=== PATIENT | female | born 1985 | race Hispanic/Latino ===

== ENCOUNTER 2021-07-23 01:48 | Day surgery (SDC) | payer OTHER ==
[2021-07-23 02:06] VITALS: BMI 36.5
[2021-07-23] MEDS ORDERED: hydrALAZINE 20 MG/ML VIAL SLOW IVP PRN (02:15)
== END 2021-07-23 02:31 | disposition home or self-care (01) ==
LOC: CSHLD/OP 01:48
PROVIDERS: ATTEND Obstetrics & Gynecology
DX: O36.8130 Decreased fetal movements, third trimester, not applicable or unspecified (principal); O24.419 Gestational diabetes mellitus in pregnancy, unspecified control; O99.343 Other mental disorders complicating pregnancy, third trimester; O99.283 Endocrine, nutritional and metabolic diseases complicating pregnancy, third trimester; O99.713 Diseases of the skin and subcutaneous tissue complicating pregnancy, third trimester; O09.523 Supervision of elderly multigravida, third trimester; F32.9 Major depressive disorder, single episode, unspecified; F41.9 Anxiety disorder, unspecified; E03.9 Hypothyroidism, unspecified; L40.50 Arthropathic psoriasis, unspecified; Z3A.32 32 weeks gestation of pregnancy; Z79.82 Long term (current) use of aspirin; Z79.84 Long term (current) use of oral hypoglycemic drugs; Z79.899 Other long term (current) drug therapy; Z86.16 Personal history of COVID-19; Z90.49 Acquired absence of other specified parts of digestive tract; Z88.5 Allergy status to narcotic agent; Z91.09 Other allergy status, other than to drugs and biological substances; Z87.891 Personal history of nicotine dependence
CPT/HCPCS: 99282

== ENCOUNTER 2022-07-23 08:04 | Outpatient (CLI) | payer BC ==
[2022-07-23 10:42] LABS: BHCG - Serum Negative (NEGATIVE); Pregs Control Background? CLEAR/WHITE (CLR/WHITE); Pregs Control Bar Appear? YES (CONTROL BAR)
== END 2022-07-23 08:05 | disposition home or self-care (01) ==
LOC: CSHLAB 08:04
PROVIDERS: ATTEND Otolaryngology Otolaryngic Allergy
DX: Z01.812 Encounter for preprocedural laboratory examination (principal); Z20.822 Contact with and (suspected) exposure to COVID-19
CPT/HCPCS: 84703; 85014; 87811

== ENCOUNTER 2022-07-28 05:50 | Observation (INO) | payer BC ==
[2022-07-28] MEDS ORDERED: Fentanyl 250 MCG/5 ML VIAL ONE (06:41)
[2022-07-28] MEDS ORDERED: PROPOFOL 20 ML ONE ×2 (06:41→07:29)
[2022-07-28] MEDS ORDERED: Ondansetron PF 4 MG/2 ML Vial ONE ×2 (06:42→08:55)
[2022-07-28] MEDS ORDERED: Rocuronium Bromide 10 MG/ML (10ML VIAL) ONE (06:42)
[2022-07-28] MEDS ORDERED: Lidocaine 1% PF 5 ML VIAL ONE (06:42)
[2022-07-28] MEDS ORDERED: Dexamethasone 20 MG/5 ML VIAL ONE (06:42)
[2022-07-28] MEDS ORDERED: Midazolam HCl 2 mg/2 ml Vial ONE (06:42)
[2022-07-28] MEDS ORDERED: Acetaminophen 325 MG TAB PO PRN (06:48)
[2022-07-28] MEDS ORDERED: Ondansetron PF 4 MG/2 ML Vial IVP PRN (06:48)
[2022-07-28] MEDS ORDERED: Ondansetron ODT 4 MG TAB PO PRN (06:48)
[2022-07-28] MEDS ORDERED: CEFAZOLIN 2 GM VIAL ONE (06:55)
[2022-07-28] MEDS ORDERED: Lidocaine 1% w/Epinephrine 1:100K 20 ML VIAL ONE (07:33)
[2022-07-28] MEDS ORDERED: Glycopyrrolate 0.2 MG/ML 5 ML SYRINGE ONE (08:16)
[2022-07-28] MEDS ORDERED: metFORMIN 500 MG TAB PO SCH (09:00)
[2022-07-28] MEDS ORDERED: Bupropion 150 MG XL TAB PO SCH (09:00)
[2022-07-28] MEDS ORDERED: Fentanyl 100 MCG/2 ML VIAL ONE ×2 (09:08→11:39)
[2022-07-28] MEDS: Calcium Carbonate 500 MG ChewTAB PO SCH ×2 (15:07→21:06)
[2022-07-28] MEDS: traMADol HCl 50 MG TAB PO PRN ×2 (17:03→21:06)
[2022-07-29] MEDS: traMADol HCl 50 MG TAB PO PRN (05:22)
[2022-07-29] MEDS ORDERED: Levothyroxine Sodium 50 MCG TAB PO SCH (06:00)
[2022-07-29 07:31] VITALS: BMI 34.8
[2022-07-29 07:39] VITALS: BP 109/66; TEMP 98.3
== END 2022-07-29 08:00 | disposition home or self-care (01) ==
LOC: CSHSDC 05:50 → INTOOBSV 14:07 → CSHICU 14:07
PROVIDERS: ADMIT Otolaryngology Otolaryngic Allergy; ATTEND Otolaryngology Otolaryngic Allergy
PROC: 0GTH0ZZ Resection of Right Thyroid Gland Lobe, Open Approach (ICD-10-PCS; principal; 2022-07-28)
DX: E04.1 Nontoxic single thyroid nodule (principal); E03.9 Hypothyroidism, unspecified; F41.9 Anxiety disorder, unspecified; F32.A Depression, unspecified; E66.9 Obesity, unspecified; Z79.899 Other long term (current) drug therapy; Z88.5 Allergy status to narcotic agent; Z68.34 Body mass index [BMI] 34.0-34.9, adult
CPT/HCPCS: 36415; 82310; 83970; 88307; J0690; J1100; J2250; J2405; J2704; J3010

== ENCOUNTER 2022-07-31 21:32 | Emergency (ER) | payer BC ==
[~2022-07-31 21:32] MED LIST: Iopamidol 370 76% 100 ML VIAL ONE
[2022-07-31 22:20] LABS: #Basophils 0.1 10x3/uL (0.0-0.2); #Eosinphils 0.2 10x3/uL (0.0-0.5); #Monocytes 0.8 10x3/uL (0.0-1.1); #Neutrophils 9.2 10x3/uL (1.5-8.4); %Basophils 0.4 % (0.0-2.0); %Eosinophils 1.6 % (0.0-6.0); %Lymphocytes 23.5 % (18.0-47.0); %Monocytes 5.9 % (0.0-10.0); %Neutrophils 68.3 % (40.0-75.0); Hemoglobin 12.4 g/dL (12.0-15.5); Mean Corpuscular HGB CONC 33.2 g/dL (32.0-36.0); Mean Corpuscular Hemoglobin 28.5 pg (27.0-33.0); Mean Platelet Volume 9.8 fl (7.4-10.4); Platelet Count 451 10x3/uL (150-450); RBC Distribution Width 13.9 % (11.5-14.5); Red Blood Cell (RBC) Count 4.35 10x6/uL (3.90-5.03); White Blood Cell (WBC) Count 13.5 10x3/uL (3.5-10.5)
[2022-07-31 22:28] LABS: BHCG - Serum Negative (NEGATIVE); Pregs Control Background? CLEAR/WHITE (CLR/WHITE); Pregs Control Bar Appear? YES (CONTROL BAR)
[2022-07-31 22:36] LABS: ALT (SGPT) 59 U/L (8-55); AST (SGOT) 20 U/L (5-34); Albumin 4.7 g/dL (3.5-5.0); Alkaline Phosphatase 69 U/L (40-110); Anion Gap 14 mmol/L (10-20); BUN (Urea Nitrogen) 14 mg/dL (7.0-18.7); Bilirubin, Total 0.3 mg/dL (0.2-1.2); CK (CPK) 100 U/L (29-168); Calc. Creatinine Clearance 0 mL/min (70-130); Calcium 10.2 mg/dL (7.8-10.44); Carbon Dioxide 26 mmol/L (22-29); Chloride 103 mmol/L (98-107); Estimated GFR 94; Globulin 2.7 g/dL (2.4-3.5); Glucose 103 mg/dL (70-105); Potassium 4.2 mmol/L (3.5-5.1); Protein, Total 7.4 g/dL (6.0-8.3); Sodium 139 mmol/L (136-145)
== END 2022-08-01 00:35 | disposition home or self-care (01) ==
LOC: CSHERS 21:32
DX: R07.89 Other chest pain (principal); M54.6 Pain in thoracic spine; E03.9 Hypothyroidism, unspecified; Z87.891 Personal history of nicotine dependence
CPT/HCPCS: 71275; 82550; 84484; 84703; 85025; 93005; Q9967

== ENCOUNTER 2023-02-09 19:20 | Emergency (ER) | payer BC ==
[2023-02-09] MEDS ORDERED: Dicyclomine 20 MG/2 ML VIAL ONE (19:51)
[2023-02-09] MEDS ORDERED: Ondansetron PF 4 MG/2 ML Vial ONE (19:51)
[2023-02-09 20:09] LABS: #Eosinphils 0.1 10x3/uL (0.0-0.5); #Monocytes 0.7 10x3/uL (0.0-1.1); %Basophils 0.2 % (0.0-2.0); %Eosinophils 0.8 % (0.0-6.0); %Lymphocytes 8.8 % (18.0-47.0); %Monocytes 4.2 % (0.0-10.0); %Neutrophils 85.5 % (40.0-75.0); Hemoglobin 13.2 g/dL (12.0-15.5); Mean Corpuscular HGB CONC 33.2 g/dL (32.0-36.0); Mean Corpuscular Hemoglobin 28.9 pg (27.0-33.0); Mean Corpuscular Volume 87.1 fl (81.6-98.3); Mean Platelet Volume 9.2 fl (7.4-10.4); Platelet Count 460 10x3/uL (150-450); RBC Distribution Width 14.6 % (11.5-14.5); Red Blood Cell (RBC) Count 4.56 10x6/uL (3.90-5.03); White Blood Cell (WBC) Count 17.5 10x3/uL (3.5-10.5)
[2023-02-09] MEDS ORDERED: Morphine 4 MG/ML VIAL ONE (20:14)
[2023-02-09 20:15] LABS: Bilirubin Neg (Negative); Blood, Urine 150 (Negative); Clarity Slightly Cloudy (Clear); Glucose, Urine (Dipstick) Normal (Negative); Ketone, Urine Negative (Negative); Leukocyte Negative (Negative); Nitrite Negative (Negative); Protein, Urine (Dipstick) 15 mg/dl (Neg-Trace); Specific Gravity, Urine 1.025 (1.005-1.030); Urobilinogen Normal mg/dL (Less than 2)
[2023-02-09 20:17] LABS: Pregnancy Test - Urine (BHCG) Negative (Negative)
[2023-02-09 20:18] LABS: Pregu Control Background? CLEAR/WHITE (CLR/WHITE); Pregu Control Bar Appear? YES (CONTROL BAR); Specific Gravity 1.025 (1.002-1.036)
[2023-02-09 20:22] LABS: ALT (SGPT) 17 U/L (8-55); AST (SGOT) 18 U/L (5-34); Albumin 4.8 g/dL (3.5-5.0); Alkaline Phosphatase 55 U/L (40-110); Anion Gap 14 mmol/L (10-20); BUN (Urea Nitrogen) 13 mg/dL (7.0-18.7); Bilirubin, Total 0.2 mg/dL (0.2-1.2); Calc. Creatinine Clearance 0 mL/min (70-130); Calcium 9.8 mg/dL (7.8-10.44); Carbon Dioxide 23 mmol/L (22-29); Chloride 106 mmol/L (98-107); Estimated GFR 82; Globulin 3.1 g/dL (2.4-3.5); Glucose 110 mg/dL (70-105); Lipase 57 U/L (8-78); Potassium 3.8 mmol/L (3.5-5.1); Protein, Total 7.9 g/dL (6.0-8.3); Sodium 139 mmol/L (136-145)
[2023-02-09 20:32] LABS: Bacteria/HPF Rare-Few HPF (None Seen); RBC/HPF 0-3 HPF (0-3)
[2023-02-09] MEDS ORDERED: Metoclopramide HCl 10 MG/2 ML VIAL ONE (21:08)
[2023-02-09] MEDS ORDERED: Ketorolac Tromethamine 30 MG/ML VIAL ONE (21:08)
[2023-02-09] MEDS ORDERED: Famotidine/PF 20 mg/2ml Vial ONE (21:39)
[2023-02-09] MEDS ORDERED: Mag-Al Plus 1200 MG/1200 MG/120 MG/30 ML UDCUP ONE (21:39)
[2023-02-09] MEDS ORDERED: Lidocaine Viscous Sol 2% 15 ml UD Cup ONE (21:39)
== END 2023-02-09 22:14 | disposition home or self-care (01) ==
LOC: CSHERS 19:20
DX: K29.70 Gastritis, unspecified, without bleeding (principal); D72.829 Elevated white blood cell count, unspecified; E03.9 Hypothyroidism, unspecified; Z87.891 Personal history of nicotine dependence
CPT/HCPCS: 74177; 80053; 81003; 81015; 81025; 83690; 85025; 96372; 96374; 96375; J1885; J2270; J2405; J2765; S0028